=== PATIENT | female | born 1985 | race African-American/Black ===

== ENCOUNTER 2017-12-14 13:05 | Emergency (ER) | payer OTHER ==
[2017-12-14 13:27] VITALS: TEMP 98.2; BMI 30.7
--- NOTE | 2017-12-14 14:28 | PDOC ---
History of Present Illness - General Chief Complaint: Chest Pain Stated Complaint: CHEST PAIN Time Seen by Provider: 12/14/17 14:03 History Source: Patient - History of Present Illness Severity: moderate Associated Symptoms: reports: chest pain. denies: cough, fever/chills, headaches, malaise, nausea/vomiting, shortness of breath, weakness Past History - Past Medical History Allergies/Adverse Reactions: Allergies Allergy/AdvReac Type Severity Reaction Status Date / Time No Known Allergies Allergy Verified 12/14/17 13:24 Home Medications: Ambulatory Orders NK [No Known Home Medication] 02/29/16 COPD: No - Family Disease History Family Disease History: Other: Mother (GERD) - Immunization History Immunization Up to Date: Yes - Suicide/Smoking/Psychosocial Hx Smoking History: Never smoked Have you smoked in the past 12 months: No Hx Alcohol Use: No Drug/Substance Use Hx: No Review of Systems - Review of Systems Constitutional: No: Chills, Fever, Malaise Respiratory: No: Shortness of Breath Cardiac (ROS): Yes: Chest Pain. No: Lightheadedness, Palpitations ABD/GI: No: Blood Streaked Bowels, Constipated, Diarrhea, Nausea, Rectal Bleeding, Vomiting, Tarry Stools : No: Dysuria, Flank Pain, Hematuria Musculoskeletal: No: Back Pain *Physical Exam - Vital Signs Last Vital Signs Temp Pulse Resp BP Pulse Ox 98.2 F 94 H 18 109/66 100 12/14/17 13:24 12/14/17 13:24 12/14/17 13:24 12/14/17 13:24 12/14/17 13:24 - Physical Exam General Appearance: Yes: Appropriately Dressed. No: Apparent Distress HEENT: positive: Normal Voice Neck: positive: Supple Respiratory/Chest: positive: Lungs Clear, Normal Breath Sounds. negative: Respiratory Distress Cardiovascular: positive: Regular Rate, S1, S2 Musculoskeletal: negative: CVA Tenderness Integumentary: positive: Dry, Warm Neurologic: positive: Fully Oriented, Alert, Normal Mood/Affect ED Treatment Course - LABORATORY CBC & Chemistry Diagram: 12/14/17 15:00 12/14/17 15:00 Medical Decision Making - Medical Decision Making 12/14/17 14:22 32-year-old female, pre-diabetic, not on medication, here with generalized body pain including back and chest pain x 1 week. No uri sxs, f/c. Also c/o diffuse abdominal pain for 3 weeks. States she was seen at [facility] 3 weeks ago and told she had a "stomach infection" on labs and prescribed 3 antibiotics which she has since completed. No imaging was done per pt. States abdominal pain and generalized body aches continues. Not taking pain meds. Denies dysuria, nausea, vomiting, fever or chills. See exam Diffuse abd pain ? chronic (seen for chronci abd pain here in 2016) Abd benign today Unclear etiology -labs/ua -contact health center for collateral info Generalized body aches x 1 week No f/c ? viral -pain control 12/14/17 14:45 I contacted ANIMAL CARE SPECIALIST Lea Chan at [facility] ([phone]) who states patient patient's stool came back positive for H. pylori and treated with Prevpac. Patient then returned on the for follow -up. Labs which were unremarkable. Regarding diffuse joint pain, MEENA and ESR came back unremarkable. On 11/26, patient also had a unremarkable pelvic ultrasound. Patient was given both GI and rheum referrals. 12/14/17 16:15 Labs unremarkable. Patient stable for discharge with appropriate referrals *DC/Admit/Observation/Transfer Diagnosis at time of Disposition: Total body pain Abdominal pain Qualifiers: Abdominal location: generalized Qualified Code(s): R10.84 - Generalized abdominal pain - Discharge Dispostion Disposition: HOME Condition at time of disposition: Good - Referrals Referrals: Justin Orellana MD [Staff Physician] - Raymond Juarez MD [Staff Physician] - - Patient Instructions Additional Instructions: The cause of your abdominal pain is unclear at this time, but you were treated for H. pylori several weeks ago. Please follow-up with GI (Dr Orellana) this week to ensure eradication of organism. Regarding your body/joint pain, you will need to follow-up with your PMD and rheumatology (Dr Juarez) Take tylenol as needed for pain - Post Discharge Activity
[2017-12-14] MEDS ORDERED: ACETAMINOPHEN 325 MG TABLET (FP) PO ONE (14:53)
[2017-12-14] MEDS ORDERED: ACETAMINOPHEN 325 MG TABLET (FP) ONE (14:56)
[2017-12-14 15:36] LABS: BASO % 0.9 % (0-2.0); EOS % 0.9 % (0-4.5); HEMATOCRIT 34.3 % (32.4-45.2); HEMOGLOBIN 11.6 GM/dL (10.7-15.3); LYMPH % 27.8 % (8-40); MCH 28.2 pg (25.7-33.7); MCHC 33.7 g/dl (32.0-36.0); MEAN CELL VOLUME 83.6 fl (80-96); MEAN PLT VOLUME 7.9 fl (7.5-11.1); MONO % 5.9 % (3.8-10.2); NEUT % 64.5 % (42.8-82.8); PLATELET COUNT 295 K/MM3 (134-434); RBC 4.11 M/mm3 (3.60-5.2); RDW 13.4 % (11.6-15.6); WHITE BLOOD COUNT 5.2 K/mm3 (4.0-10.0)
[2017-12-14 16:00] LABS: ALBUMIN 4.3 g/dl (3.4-5.0); ANION GAP 4 (8-16); BLOOD UREA NITROGEN 12 mg/dL (7-18); CALCIUM 9.3 mg/dL (8.5-10.1); CHLORIDE 107 mmol/L (98-107); CO2 28 mmol/L (21-32); CREATININE 0.8 mg/dL (0.55-1.02); GLUCOSE,RANDOM 125 mg/dL (74-106); LIPASE 167 U/L (73-393); POTASSIUM 4.8 mmol/L (3.5-5.1); SGOT/AST 16 U/L (15-37); SGPT/ALT 20 U/L (12-78); SODIUM 139 mmol/L (136-145); TOT PROT 7.1 g/dl (6.4-8.2)
[2017-12-14 16:02] LABS: ALK PHOS 60 U/L (45-117); BILIRUBIN,TOTAL 0.2 mg/dL (0.2-1.0)
[2017-12-14 16:17] VITALS: BP 126/71; PULSE 77
--- NOTE | 2017-12-15 10:10 | EKG ---
Test Reason : Blood Pressure : / mmHG Vent. Rate : 084 BPM Atrial Rate : 084 BPM P-R Int : 164 ms QRS Dur : 080 ms QT Int : 360 ms P-R-T Axes : 071 060 049 degrees QTc Int : 425 ms NORMAL SINUS RHYTHM POSSIBLE LEFT ATRIAL ENLARGEMENT BORDERLINE ECG WHEN COMPARED WITH ECG OF 10-DEC-2014 17:07, NO SIGNIFICANT CHANGE WAS FOUND Confirmed by Brett Hodge MD ([id number]) on 12/15/2017 10:10:48 AM Referred By: Confirmed By:Brett Hodge MD
== END 2017-12-14 16:16 | disposition home or self-care (01) ==
LOC: JER 13:05
DX: R10.84 Generalized abdominal pain (principal); R52 Pain, unspecified
CPT/HCPCS: 36415; 80053; 83690; 84703; 85025; 93005; 93010; 99282-25

== ENCOUNTER 2018-07-19 11:20 | Emergency (ER) | payer OTHER ==
[2018-07-19 11:36] VITALS: BP 126/73; PULSE 74; TEMP 98.3; BMI 30.2
--- NOTE | 2018-07-19 12:19 | PDOC ---
History of Present Illness - General Chief Complaint: Urinary Problem Stated Complaint: RT SIDE PAIN, URINARY PROBLEM Time Seen by Provider: 07/19/18 11:59 History Source: Patient Exam Limitations: No Limitations - History of Present Illness Travel History: No Initial Comments: 07/19/18 12:16 2 yr female with right side flank pain radiates to suprapubic area with blood in urine. pt denies nvd . pt has no current medical problems no medications. LMP 06/28/18. Timing/Duration: reports: constant, getting worse Quality: reports: moderate Abdominal Pain Onset Location: reports: periumbilical, flank Past History - Past Medical History Allergies/Adverse Reactions: Allergies Allergy/AdvReac Type Severity Reaction Status Date / Time No Known Allergies Allergy Verified 07/19/18 11:30 Home Medications: Ambulatory Orders Acetaminophen [Tylenol] 650 mg PO QID 07/19/18 Ibuprofen [Advil -] 600 mg PO QID 07/19/18 COPD: No - Family Disease History Family Disease History: Other: Mother (GERD) - Immunization History Immunization Up to Date: Yes - Suicide/Smoking/Psychosocial Hx Smoking History: Never smoked Have you smoked in the past 12 months: No Hx Alcohol Use: No Drug/Substance Use Hx: No Abd/GI Specific PMHX - Complaint Specific PMHX Colitis: No Diverticulitis: No Gall Bladder Disease: No GERD: No Hepatitis: No Irritable Bowel Synd (IBS): No Pancreatitis: No GI Ulcer Disease: No Review of Systems - Review of Systems Able to Perform ROS?: Yes Is the patient limited [place]adian proficient: No Constitutional: No: Symptoms Reported HEENTM: No: Symptoms Reported Respiratory: No: Symptoms reported Cardiac (ROS): No: Symptoms Reported ABD/GI: No: Symptoms Reported : Yes: Symptoms Reported, Flank Pain Musculoskeletal: No: Symptoms Reported Integumentary: No: Symptoms Reported Neurological: No: Symptoms reported *Physical Exam - Vital Signs Last Vital Signs Temp Pulse Resp BP Pulse Ox 98.3 F 74 18 126/73 98 07/19/18 11:34 07/19/18 11:34 07/19/18 11:34 07/19/18 11:34 07/19/18 11:34 - Physical Exam General Appearance: Yes: Nourished, Appropriately Dressed HEENT: positive: EOMI, ISAIAS, Normal ENT Inspection, TMs Normal, Pharynx Normal Neck: positive: Supple Respiratory/Chest: positive: Lungs Clear, Normal Breath Sounds Cardiovascular: positive: Regular Rhythm, Regular Rate Gastrointestinal/Abdominal: positive: Normal Bowel Sounds, Tender (right side flank to lower quadrant ), Soft Lymphatic: negative: Adenopathy Musculoskeletal: positive: Normal Inspection Extremity: positive: Normal Capillary Refill, Normal Inspection, Normal Range of Motion. negative: Tender Integumentary: positive: Normal Color, Dry, Warm Neurologic: positive: Fully Oriented, Alert, Normal Mood/Affect, Normal Response , Motor Strength 01/16 ED Treatment Course - LABORATORY CBC & Chemistry Diagram: 07/19/18 12:15 07/19/18 12:20 Medical Decision Making - Medical Decision Making 07/19/18 12:18 cc: right flank to RLQ to suprapubic area will r/o uti, renal colic, appendicitis 07/20/18 16:41 results discussed pt will follow up with security flex utility officer as discussed copies of labs and ct given to patient *DC/Admit/Observation/Transfer Diagnosis at time of Disposition: Abdominal pain Qualifiers: Abdominal location: unspecified location Qualified Code(s): R10.9 - Unspecified abdominal pain - Discharge Dispostion Disposition: HOME Condition at time of disposition: Improved - Referrals Referrals: Lea Chan NP [Primary Care Provider] - Pavithra Cowart MD [Staff Physician] - - Patient Instructions Additional Instructions: please follow with the [facility] for follow up there is no evidence of kidney stone, urine infection or abdominal infection at this time however you must see the city san[facility] and your primary care as well - Post Discharge Activity
[2018-07-19 12:20] LABS: HCG,QUALITATIVE URINE Negative
[2018-07-19 12:27] LABS: URINE APPEARANCE CLEAR; URINE BILIRUBIN NEGATIVE (<2.0 mg/dL); URINE COLOR LTYELLOW; URINE GLUCOSE (UA) NEGATIVE (NEGATIVE); URINE KETONE NEGATIVE (NEGATIVE); URINE LEUK ESTERASE NEGATIVE (NEGATIVE); URINE NITRITE NEGATIVE (NEGATIVE); URINE PROTEIN NEGATIVE (NEGATIVE); URINE UROBILINOGEN NEGATIVE mg/dL (0.2-1.0)
[2018-07-19] MEDS ORDERED: KETOROLAC TROMETHAMINE 60 MG/2 ML VIAL IM ONE (12:32)
[2018-07-19 12:37] LABS: EPI CELLS RARE /HPF (FEW); URINE MUCUS RARE
[2018-07-19] MEDS ORDERED: KETOROLAC TROMETHAMINE 60 MG/2 ML VIAL ONE (12:40)
[2018-07-19 12:43] LABS: BASO % 0.7 % (0-2.0); EOS % 1.2 % (0-4.5); HEMATOCRIT 39.3 % (32.4-45.2); HEMOGLOBIN 12.8 GM/dL (10.7-15.3); LYMPH % 38.5 % (8-40); MCH 27.5 pg (25.7-33.7); MCHC 32.7 g/dl (32.0-36.0); MEAN CELL VOLUME 84.2 fl (80-96); MEAN PLT VOLUME 7.6 fl (7.5-11.1); MONO % 6.9 % (3.8-10.2); NEUT % 52.7 % (42.8-82.8); PLATELET COUNT 311 K/MM3 (134-434); RBC 4.66 M/mm3 (3.60-5.2); WHITE BLOOD COUNT 5.6 K/mm3 (4.0-10.0)
[2018-07-19 13:54] LABS: ALBUMIN 4.5 g/dl (3.4-5.0); ALK PHOS 63 U/L (45-117); ANION GAP 9 MMOL/L (8-16); BILIRUBIN,TOTAL 0.5 mg/dL (0.2-1); BLOOD UREA NITROGEN 9 mg/dL (7-18); CALCIUM 9.1 mg/dL (8.5-10.1); CHLORIDE 101 mmol/L (98-107); CO2 27 mmol/L (21-32); CREATININE 0.7 mg/dL (0.55-1.3); GLUCOSE,RANDOM 87 mg/dL (74-106); POTASSIUM 4.1 mmol/L (3.5-5.1); SGOT/AST 17 U/L (15-37); SGPT/ALT 26 U/L (13-61); SODIUM 136 mmol/L (136-145)
[2018-07-19 13:59] LABS: AMYLASE 51 U/L (25-115); LIPASE 163 U/L (73-393)
== END 2018-07-19 15:08 | disposition home or self-care (01) ==
LOC: JERFT 11:20
PROC: 3E0233Z Introduction of Anti-inflammatory into Muscle, Percutaneous Approach (ICD-10-PCS; principal; 2018-07-19)
DX: R10.9 Unspecified abdominal pain (principal)
CPT/HCPCS: 36415; 74176; 80053; 81003; 81015; 82150; 83690; 84703; 85025; 87086; 96372; 99281-25

== ENCOUNTER 2019-09-23 15:22 | Emergency (ER) | payer OTHER ==
--- NOTE | 2019-09-23 15:26 | PDOC ---
Rapid Medical Evaluation Time Seen by Provider: 09/23/19 15:25 Medical Evaluation: Allergies Allergy/AdvReac Type Severity Reaction Status Date / Time No Known Allergies Allergy Verified 07/19/18 11:30 09/23/19 15:25 HPI: Abdominal pain, MARLEY, and Nausea x1 week PE: No gross deficits ORDERS: Labs Discharge Disposition - Diagnosis Abdominal pain - Referrals - Patient Instructions - Post Discharge Activity
[2019-09-23 15:27] VITALS: BP 138/79; PULSE 87; TEMP 98; BMI 30.2
[2019-09-23 16:05] LABS: BASO % 0.7 % (0-2.0); EOS % 1.4 % (0-4.5); HEMATOCRIT 36.7 % (32.4-45.2); LYMPH % 43.8 % (8-40); MCH 27.6 pg (25.7-33.7); MCHC 32.7 g/dl (32.0-36.0); MEAN CELL VOLUME 84.3 fl (80-96); MEAN PLT VOLUME 7.7 fl (7.5-11.1); MONO % 7.8 % (3.8-10.2); NEUT % 46.3 % (42.8-82.8); PLATELET COUNT 317 K/MM3 (134-434); RBC 4.35 M/mm3 (3.60-5.2); RDW 13.3 % (11.6-15.6); WHITE BLOOD COUNT 5.9 K/mm3 (4.0-10.0)
[2019-09-23 16:26] LABS: EPI CELLS 0.3 /HPF (0-5/HPF); HYALINE CASTS 0 /lpf (0-8); PH,URINE 7.5 (5.0-8.0); URINE APPEARANCE CLEAR; URINE BACTERIA 0.3 /hpf (NEGATIVE); URINE BILIRUBIN NEGATIVE (NEGATIVE); URINE COLOR YELLOW; URINE GLUCOSE (UA) NEGATIVE (NEGATIVE); URINE KETONE NEGATIVE (NEGATIVE); URINE LEUK ESTERASE NEGATIVE (NEGATIVE); URINE NITRITE NEGATIVE (NEGATIVE); URINE PROTEIN NEGATIVE (NEGATIVE); URINE RBC 56 /hpf (0-4); URINE UROBILINOGEN 0.2 mg/dL (0.2-1.0); URINE WBC 0 /hpf (0-5)
[2019-09-23 16:36] LABS: ALBUMIN 4.1 g/dl (3.4-5.0); BILIRUBIN,TOTAL 0.3 mg/dL (0.2-1); BLOOD UREA NITROGEN 8.9 mg/dL (7-18); CALCIUM 9.6 mg/dL (8.5-10.1); CREATININE 0.7 mg/dL (0.55-1.3); TOT PROT 7.7 g/dl (6.4-8.2)
[2019-09-23] MEDS ORDERED: METOCLOPRAMIDE HCL INJECTION 10 MG/2 ML VIAL IVPB ONE (16:47)
[2019-09-23] MEDS ORDERED: ACETAMINOPHEN 1000 MG/100 ML VIAL (NON FORMULARY) IVPB ONE (16:47)
[2019-09-23] MEDS ORDERED: LACTATED RINGERS SOLUTION 1000 ML INFUS.BAG IV ONE (16:49)
[2019-09-23] MEDS ORDERED: METOCLOPRAMIDE HCL INJECTION 10 MG/2 ML VIAL ONE (17:27)
[2019-09-23] MEDS ORDERED: ACETAMINOPHEN INJECTION 100 ML IVPB ONE (17:27)
--- NOTE | 2019-09-23 17:31 | PDOC ---
History of Present Illness - General Chief Complaint: Pain Stated Complaint: TOTAL BODY PAIN Time Seen by Provider: 09/23/19 15:25 History Source: Patient Exam Limitations: Clinical Condition - History of Present Illness Initial Comments: 09/23/19 17:27pm Patient with no significant past medical history present with complaint of one- week history of right upper quadrant abdominal pain and headaches with whole body aches for a week. Patient reported sometimes hurts when she steps on her feet. Patient report having similar episode a year ago and have had episode 3 times in the past 2-1/2 years and all work-up came back negative which resolved spontaneously 8 months ago but came back again a week ago. Report mild nausea and dizziness which has been intermittent. Denies recent travel, blurry vision , fever, chills, diarrhea, constipation, vomiting. Is this a multiple visit Asthma Patient?: No Timing/Duration: 1 week Past History - Past Medical History Allergies/Adverse Reactions: Allergies Allergy/AdvReac Type Severity Reaction Status Date / Time No Known Allergies Allergy Verified 09/23/19 15:27 Home Medications: Ambulatory Orders Butalb/Acetaminophen/Caffeine [Fioricet 50-300-40 mg Capsule] 1 each PO Q8H PRN #20 capsule 09/23/19 COPD: No - Immunization History Immunization Up to Date: Yes - Psycho Social/Smoking Cessation Hx Smoking History: Never smoked Have you smoked in the past 12 months: No Hx Alcohol Use: No Drug/Substance Use Hx: No Review of Systems - Review of Systems Able to Perform ROS?: Yes Is the patient limited [place]ian proficient: No Constitutional: No: Chills, Fever, Malaise HEENTM: Yes: Symptoms Reported, See HPI. No: Eye Pain, Blurred Vision, Tearing , Recent change in vision, Double Vision, Cataracts, Ear Pain, Ocular Prothesis , Ear Discharge, Nose Pain, Nose Congestion, Tinnitus, Nose Bleeding, Hearing Loss, Throat Pain, Throat Swelling, Mouth Pain, Dental Problems, Difficulty Swallowing, Mouth Swelling, Other Respiratory: No: Symptoms reported, See HPI, Cough, Orthopnea, Shortness of Breath, SOB with Exertion, SOB at Rest, Stridor, Wheezing, Productive cough, Hemoptysis, Other Cardiac (ROS): No: Symptoms Reported, See HPI, Chest Pain, Edema, Irregular Heart Rate, Lightheadedness, Palpitations, Syncope, Chest Tightness, Other ABD/GI: Yes: Symptoms Reported, See HPI, Nausea, Abdominal cramping (RUQ abd pain). No: Constipated, Diarrhea, Vomiting : No: Burning, Discharge, Frequency, Urgency Musculoskeletal: No: Symptoms Reported All Other Systems: Reviewed and Negative *Physical Exam - Vital Signs Last Vital Signs Temp Pulse Resp BP Pulse Ox 98 F 87 18 138/79 100 09/23/19 15:24 09/23/19 15:24 09/23/19 15:24 09/23/19 15:24 09/23/19 15:24 - Physical Exam 09/23/19 17:31 GENERAL: Well developed, well nourished. Awake and alert. No acute distress. HEENT: Normocephalic, atraumatic. PERRLA, EOMI. No conjunctival pallor. Sclera are non-icteric. Moist mucous membranes. Oropharynx is clear. NECK: Supple. Full ROM. CARDIOVASCULAR: Regular rate and rhythm. No murmurs, rubs, or gallops. Distal pulses are 2+ and symmetric. PULMONARY: No evidence of respiratory distress. Lungs clear to auscultation bilaterally. No wheezing, rales or rhonchi. ABDOMINAL: Soft. Non-tender. Non-distended. No rebound or guarding. No organomegaly. Normoactive bowel sounds. MUSCULOSKELETAL Normal range of motion at all joints. SKIN: Warm and dry. Normal capillary refill. No rashes. No jaundice. No cyanosis NEUROLOGICAL: Alert, awake, appropriate. Gait is normal without ataxia. PSYCHIATRIC: Cooperative. Good eye contact. Appropriate mood General Appearance: Yes: Nourished, Appropriately Dressed. No: Apparent Distress ED Treatment Course - LABORATORY CBC & Chemistry Diagram: 09/23/19 15:35 09/23/19 15:35 - ADDITIONAL ORDERS Additional order review: Laboratory Results 09/23/19 09/23/19 09/23/19 15:35 15:35 15:35 Sodium 139 Potassium 4.0 Chloride 104 Carbon Dioxide 28 Anion Gap 7 L BUN 8.9 Creatinine 0.7 Est GFR (CKD-EPI)AfAm 130.10 Est GFR (CKD-EPI)NonAf 112.25 Random Glucose 84 Calcium 9.6 Total Bilirubin 0.3 AST 18 ALT 23 Alkaline Phosphatase 57 Total Protein 7.7 Albumin 4.1 Lipase 206 Serum , Qual Negative Urine Color Yellow Urine Appearance Clear Urine pH 7.5 D Ur Specific [place] 1.017 Urine Protein Negative Urine Glucose (UA) Negative Urine Ketones Negative Urine Blood 2+ H Urine Nitrite Negative Urine Bilirubin Negative Urine Urobilinogen 0.2 Ur Leukocyte Esterase Negative Urine WBC (Auto) 0 Urine RBC (Auto) 56 Urine Casts (Auto) 0 U Epithel Cells (Auto) 0.3 Urine Bacteria (Auto) 0.3 09/23/19 15:35 RBC 4.35 MCV 84.3 MCHC 32.7 RDW 13.3 MPV 7.7 Neutrophils % 46.3 Lymphocytes % 43.8 H Monocytes % 7.8 Eosinophils % 1.4 Basophils % 0.7 - RADIOLOGY Radiology Studies Ordered: Category Date Time Status HEAD CT WITHOUT CONTRAST [CT] Stat CT Scan 09/23/19 16:44 Ordered ABDOMEN US -LIMITED [US] Stat Ultrasound 09/23/19 16:44 Taken Medical Decision Making - Medical Decision Making 09/23/19 17:29 Patient with no significant past medical history present with complaint of one- week history of right upper quadrant abdominal pain and headaches with whole body aches for a week. Patient reported sometimes hurts when she steps on her feet. Patient report having similar episode a year ago and have had episode 3 times in the past 2-1/2 years and all work-up came back negative which resolved spontaneously 8 months ago but came back again a week ago. Report mild nausea and dizziness which has been intermittent. Denies recent travel, blurry vision , fever, chills, diarrhea, constipation, vomiting. Clinical exam unremarkable with normal neuro exam and no abdominal tenderness on exam. Patient afebrile now. Symptoms likely migraine headache versus autoimmune disease versus less viral syndrome. CBC, CMP and lipase lab ordered from outside shows no acute pathology. UA within normal limits. Head CT without contrast ordered to rule out acute head pathology. Abdominal ultrasound ordered to rule out acute abdominal pathology. Reglan 10 mg IV, IV hydration with 1 L lactated Ringer's ordered for headache and Tylenol 1 g IV ordered for headache. Reassess after 30 minutes 09/23/19 18:[address] unremarkable. Patient stable for discharge of Fioricet PRN for headache with rheumatology follow-up. Abdominal ultrasound showed mild fatty liver otherwise unremarkable ultrasound with no other acute findings. Patient will be referred to GI for follow-up of fatty liver Discharge - Discharge Information Problems reviewed: Yes Clinical Impression/Diagnosis: Myalgia Abdominal pain Qualifiers: Abdominal location: right upper quadrant Qualified Code(s): R10.11 - Right upper quadrant pain Headache Qualifiers: Headache type: unspecified Headache chronicity pattern: episodic headache Intractability: not intractable Qualified Code(s): R51 - Headache Condition: Stable Disposition: HOME - Admission No - Additional Discharge Information Prescriptions: Butalb/Acetaminophen/Caffeine [Fioricet 50-300-40 mg Capsule] 1 each PO Q8H PRN #20 capsule PRN Reason: headache - Follow up/Referral Referrals: Oscar Goodman MD [Staff Physician] - Raymond Juarez MD [Staff Physician] - - Patient Discharge Instructions Patient Printed Discharge Instructions: DI for Migraine Additional Instructions: Your blood work was normal. Your head CAT scan shows no abnormal findings. Your abdominal ultrasound shows mild fatty infiltrate of your liver which I discussed with you. Follow-up with GI doctor Dr. Goodman for fatty liver. Follow -up with Dr. Juarez for headaches and body pains evaluation. Take prescribed medication as needed for headaches. Increase fluid intake - Post Discharge Activity
--- NOTE | 2019-09-24 09:18 | EKG ---
Test Reason : Blood Pressure : / mmHG Vent. Rate : 076 BPM Atrial Rate : 076 BPM P-R Int : 160 ms QRS Dur : 080 ms QT Int : 378 ms P-R-T Axes : 050 058 041 degrees QTc Int : 425 ms NORMAL SINUS RHYTHM NORMAL ECG WHEN COMPARED WITH ECG OF 14-DEC-2017 13:15, NO SIGNIFICANT CHANGE WAS FOUND Confirmed by EVY MCKNIGHT MD ([id number]) on 09/24/2019 9:18:17 AM Referred By: Confirmed By:EVY MCKNIGHT MD
== END 2019-09-23 19:38 | disposition home or self-care (01) ==
LOC: JER 15:22
PROC: 3E033NZ Introduction of Analgesics, Hypnotics, Sedatives into Peripheral Vein, Percutaneous Approach (ICD-10-PCS; principal; 2019-09-23)
PROC: 3E033GC Introduction of Other Therapeutic Substance into Peripheral Vein, Percutaneous Approach (ICD-10-PCS; 2019-09-23)
DX: M79.18 Myalgia, other site (principal); R51 Headache; R10.11 Right upper quadrant pain
CPT/HCPCS: 36415; 70450-TC; 76705-TC; 80053; 81003; 83690; 84703; 85025; 93005; 93010; 96374; 96375; 99283-25; J0131